=== PATIENT | male | born 1995 | race Caucasian/White ===

== ENCOUNTER 2016-05-17 22:42 | Emergency (ER) | payer SELFPAY | END 2016-05-18 02:25 | disposition home or self-care (01) | LOC: D.ER 22:42 | DX: S62.617A Displaced fracture of proximal phalanx of left little finger, initial encounter for closed fracture (principal); V89.2XXA Person injured in unspecified motor-vehicle accident, traffic, initial encounter; Y93.89 Activity, other specified; Y92.410 Unspecified street and highway as the place of occurrence of the external cause; F17.200 Nicotine dependence, unspecified, uncomplicated ==

== ENCOUNTER 2016-06-03 21:39 | Emergency (ER) | payer SELFPAY | END 2016-06-04 00:42 | disposition home or self-care (01) | LOC: D.ER 21:39 | DX: J20.9 Acute bronchitis, unspecified (principal); R50.9 Fever, unspecified ==

== ENCOUNTER 2017-10-03 00:45 | Emergency (ER) | payer SELFPAY | END 2017-10-03 01:30 | disposition home or self-care (01) | LOC: D.ER 00:45 | DX: M54.16 Radiculopathy, lumbar region (principal); F17.200 Nicotine dependence, unspecified, uncomplicated ==

== ENCOUNTER 2017-11-13 01:32 | Emergency (ER) | payer SELFPAY ==
[~2017-11-13] VITALS: Ht 175.3 cm; Wt 59.0 kg
[2017-11-13 01:38] VITALS: Ht 175.3 cm; Wt 59.0 kg
[2017-11-13] MEDS ORDERED: PERCOCET 7.5/321 TAB PO (03:58)
[2017-11-13 04:24] VITALS: BP 129/89
== END 2017-11-13 04:25 | disposition home or self-care (01) ==
LOC: D.ER 01:32
DX: R51 Headache (principal); M54.2 Cervicalgia; F17.200 Nicotine dependence, unspecified, uncomplicated; Y04.2XXA Assault by strike against or bumped into by another person, initial encounter; Y93.89 Activity, other specified; Y92.89 Other specified places as the place of occurrence of the external cause

== ENCOUNTER 2018-06-11 16:00 | Emergency (ER) | payer SELFPAY ==
[~2018-06-11] VITALS: Ht 175.3 cm; Wt 68.2 kg
[~2018-06-11 16:00] MED LIST: PERCOCET 7.5/321 TAB PO
[2018-06-11 16:11] VITALS: Ht 175.3 cm; Wt 68.2 kg
[2018-06-11] MEDS ORDERED: VOLTAREN75 MG PO (17:32)
[2018-06-11] MEDS ORDERED: VIBRAMYCIN 100100 MG PO (17:32)
[2018-06-11 18:01] VITALS: BP 115/65
== END 2018-06-11 18:01 | disposition home or self-care (01) ==
LOC: D.ER 16:00
DX: L03.011 Cellulitis of right finger (principal); F17.200 Nicotine dependence, unspecified, uncomplicated

== ENCOUNTER 2019-01-05 10:17 | Emergency (ER) | payer SELFPAY ==
[2018-06-11 16:11] VITALS: Ht 175.3 cm; Wt 63.6 kg
[~2019-01-05] VITALS: Ht 175.3 cm; Wt 63.6 kg
[~2019-01-05 10:17] MED LIST changes: +VIBRAMYCIN 100100 MG PO; +VOLTAREN75 MG PO
[2019-01-05 11:42] LABS: APPEARANCE CLEAR (CLEAR); COLOR YELLOW (YELLOW)
[2019-01-05 11:43] LABS: BILIRUBIN NEGATIVE (NEGATIVE); GLUCOSE NEGATIVE (NEGATIVE); KETONE NEGATIVE (NEGATIVE); NITRITE NEGATIVE (NEGATIVE); PROTEIN NEGATIVE (NEGATIVE); UROBILINOGEN NORMAL (NORMAL)
[2019-01-05] MEDS ORDERED: LEVOFLOXACIN500 MG PO (12:24)
[2019-01-05] MEDS ORDERED: TORADOL10 MG PO (12:24)
[2019-01-05 13:14] VITALS: BP 115/59
== END 2019-01-05 13:14 | disposition home or self-care (01) ==
LOC: D.ER 10:17
PROVIDERS: Family Medicine
DX: N45.1 Epididymitis (principal)

== ENCOUNTER 2019-01-08 14:25 | Emergency (ER) | payer MEDICAID ==
[~2019-01-08] VITALS: Ht 175.3 cm; Wt 63.6 kg
[~2019-01-08 14:25] MED LIST changes: +LEVOFLOXACIN500 MG PO; +TORADOL10 MG PO
[2019-01-08 14:35] VITALS: BP 132/88; Ht 175.3 cm; Wt 63.6 kg
== END 2019-01-08 16:50 | disposition left against medical advice (07) ==
LOC: D.ER 14:25
DX: N50.812 Left testicular pain (principal)